=== PATIENT | female | born 1955 | race Caucasian/White ===

== ENCOUNTER 2024-07-01 08:31 | Inpatient (IN) ==
[2024-07-01] MEDS: IPRATROPIUM/ALBUTEROL 3 ML AMPUL.NEB NEB ONE (08:59)
[2024-07-01 09:37] LABS: Basophils # (Auto) 0.03 K/mcL (0.00-0.30); Basophils % (Auto) 0.4 % (0.0-2.0); Eosinophils # (Auto) 0 K/mcL (0.00-0.70); Eosinophils % (Auto) 0 % (0.0-7.0); Hematocrit 49.3 % (34.1-44.9); Hemoglobin 15.7 g/dL (11.2-15.7); Lymphocytes # (Auto) 2.89 K/mcL (1.50-4.80); Lymphocytes % (Auto) 36.5 % (15.5-49.0); Mean Cell Volume 99.6 fL (80.0-100.0); Mean Corpuscular HGB Conc 31.8 g/dL (31.0-36.0); Mean Platelet Volume 10.9 fL (8.8-12.5); Monocytes # (Auto) 0.57 K/mcL (0.10-0.90); Monocytes % (Auto) 7.2 % (1.0-12.0); Neutrophils % (Auto) 55.8 % (38.0-78.0); Platelet Count 168 K/mcL (140-440); RBC 4.95 M/mcL (3.59-5.38); Red Cell Distribution Width 13.5 % (11.5-14.5); WBC 7.9 K/mcL (4.5-11.0)
[2024-07-01 09:59] LABS: ALT/SGPT 34 U/L (<40); AST/SGOT 39 U/L (<32); Albumin 3.5 gm/dL (3.2-5.2); Albumin/Globulin Ratio 1.2 (1.0-2.3); Alkaline Phosphatase 84 U/L (39-117); Bilirubin,Total 0.4 mg/dL (0.1-1.0); Blood Urea Nitrogen 11 mg/dL (8-23); Calcium 9.6 mg/dL (8.6-10.4); Carbon Dioxide 27 mmol/L (22-30); Chloride 97 mmol/L (96-108); Globulin 2.9 gm/dL (2.2-3.7); Glomerular Filtration Rate 57; Glucose 180 mg/dL (70-105); Potassium 4.8 mmol/L (3.3-5.1); Sodium 136 mmol/L (133-145)
[2024-07-01] MEDS: AZITHROMYCIN 250 MG TABLET PO ONE (11:44)
[2024-07-01] MEDS: 0.9 % SODIUM CHLORIDE 500 ML IV ONE (11:45)
[2024-07-01] MEDS: cefTRIAXone 1 GM VIAL IV ONE (11:45)
[2024-07-01] MEDS: ALBUTEROL SULFATE 2.5 MG/3 ML NEBULIZER NEB ONE (11:54)
[2024-07-01 13:00] LABS: INR 1.4 (0.9-1.1); Prothrombin Time 18.6 sec (11.9-14.5)
[2024-07-01] MEDS ORDERED: POTASSIUM CHLORIDE 40 MEQ in DEXTROSE 5% IN WATER 500 ML IV PRN (13:41)
[2024-07-01] MEDS ORDERED: DEXTROSE 50% 50 ML VIAL IV PRN (13:41)
[2024-07-01] MEDS ORDERED: ACETAMINOPHEN 325 MG TABLET PO PRN (13:41)
[2024-07-01] MEDS ORDERED: DEXTROSE 31 GM ORAL.SUSP PO PRN (13:41)
[2024-07-01] MEDS ORDERED: POTASSIUM CHLORIDE 20 MEQ TABLET PO PRN ×2 (13:41)
[2024-07-01] MEDS ORDERED: METOCLOPRAMIDE 10 MG/2 ML VIAL IV PRN (13:41)
[2024-07-01] MEDS ORDERED: ONDANSETRON 4 MG/2 ML VIAL IV PRN (13:41)
[2024-07-01] MEDS ORDERED: SENNOSIDES 1 TABLET PO PRN (13:41)
[2024-07-01] MEDS: METOPROLOL TARTRATE 5 MG/5 ML VIAL IV PRN (16:47)
[2024-07-01] MEDS: INSULIN LISPRO 1 UNIT/0.01 ML UNIT SQ SCH (16:56)
[2024-07-01] MEDS: APIXABAN 5 MG TABLET PO SCH (20:31)
[2024-07-01] MEDS: guaiFENesin/CODEINE 10 ML UDC PO PRN (20:31)
[2024-07-01] MEDS: OMEPRAZOLE 20 MG CAPSULE PO SCH (20:31)
[2024-07-01] MEDS: DIVALPROEX SODIUM ER 250 MG TABLET PO SCH (20:32)
[2024-07-01] MEDS: BENZTROPINE 1 MG TABLET PO SCH (20:33)
[2024-07-01] MEDS: IPRATROPIUM/ALBUTEROL 3 ML AMPUL.NEB NEB PRN (21:01)
[2024-07-02 06:20] LABS: Basophils # (Auto) 0.03 K/mcL (0.00-0.30); Basophils % (Auto) 0.4 % (0.0-2.0); Eosinophils # (Auto) 0.06 K/mcL (0.00-0.70); Eosinophils % (Auto) 0.8 % (0.0-7.0); Hematocrit 44.8 % (34.1-44.9); Hemoglobin 14.3 g/dL (11.2-15.7); Lymphocytes # (Auto) 3.67 K/mcL (1.50-4.80); Lymphocytes % (Auto) 51.7 % (15.5-49.0); Mean Corpuscular HGB Conc 31.9 g/dL (31.0-36.0); Mean Platelet Volume 11.3 fL (8.8-12.5); Monocytes # (Auto) 0.75 K/mcL (0.10-0.90); Monocytes % (Auto) 10.6 % (1.0-12.0); Neutrophils % (Auto) 36.4 % (38.0-78.0); Platelet Count 154 K/mcL (140-440); RBC 4.48 M/mcL (3.59-5.38); Red Cell Distribution Width 13.6 % (11.5-14.5); WBC 7.1 K/mcL (4.5-11.0)
[2024-07-02 06:32] LABS: ALT/SGPT 26 U/L (<40); AST/SGOT 32 U/L (<32); Albumin 3.2 gm/dL (3.2-5.2); Albumin/Globulin Ratio 1.2 (1.0-2.3); Alkaline Phosphatase 72 U/L (39-117); Bilirubin,Direct < 0.2 mg/dL (0-0.3); Bilirubin,Total 0.3 mg/dL (0.1-1.0); Blood Urea Nitrogen 12 mg/dL (8-23); Calcium 8.9 mg/dL (8.6-10.4); Carbon Dioxide 26 mmol/L (22-30); Chloride 100 mmol/L (96-108); Globulin 2.6 gm/dL (2.2-3.7); Glomerular Filtration Rate 74; Glucose 138 mg/dL (70-105); Lactate Dehydrogenase 202 U/L (135-225); Phosphorous 3.9 mg/dL (2.5-4.5); Potassium 5.3 mmol/L (3.3-5.1); Sodium 138 mmol/L (133-145); Triglycerides 128 mg/dL (<150); Uric Acid 5.9 mg/dL (2.5-8.0)
[2024-07-02] MEDS: FUROSEMIDE 40 MG TABLET PO SCH (09:31)
[2024-07-02] MEDS: QUEtiapine 25 MG TABLET PO SCH (09:31)
[2024-07-02] MEDS: METOPROLOL SUCCINATE 25 MG TAB.XL.24H PO SCH (09:32)
[2024-07-02] MEDS: ATORVASTATIN 20 MG TABLET PO SCH (09:32)
[2024-07-02] MEDS: cefTRIAXone 2 GM in DEXTROSE 5% IN WATER 50 ML IV SCH (10:01)
[2024-07-02] MEDS: AZITHROMYCIN 500 MG in DEXTROSE 5% IN WATER 250 ML IV SCH (10:52)
[2024-07-02] MEDS: MAGNESIUM SULFATE 2 GM/50 ML BAG IV PRN (12:10)
[2024-07-02] MEDS: VENLAFAXINE 75 MG PO SCH (15:40)
[2024-07-03] MEDS: BENZOCAINE/MENTHOL 1 LOZENGE PO PRN (02:58)
[2024-07-03 06:29] LABS: ALT/SGPT 22 U/L (<40); AST/SGOT 28 U/L (<32); Albumin/Globulin Ratio 1.2 (1.0-2.3); Alkaline Phosphatase 68 U/L (39-117); Bilirubin,Direct < 0.2 mg/dL (0-0.3); Bilirubin,Total 0.3 mg/dL (0.1-1.0); Blood Urea Nitrogen 11 mg/dL (8-23); Calcium 8.4 mg/dL (8.6-10.4); Carbon Dioxide 27 mmol/L (22-30); Chloride 99 mmol/L (96-108); Globulin 2.5 gm/dL (2.2-3.7); Glomerular Filtration Rate 88; Glucose 144 mg/dL (70-105); Lactate Dehydrogenase 212 U/L (135-225); Phosphorous 4.5 mg/dL (2.5-4.5); Potassium 4.9 mmol/L (3.3-5.1); Sodium 137 mmol/L (133-145); Triglycerides 144 mg/dL (<150); Uric Acid 6.1 mg/dL (2.5-8.0)
[2024-07-03] MEDS: POLYETHYLENE GLYCOL 3350 17 GM PACKET PO PRN (07:39)
[2024-07-03] MEDS: DIVALPROEX SODIUM ER 250 MG TABLET PO SCH (09:44)
[2024-07-03] MEDS: VENLAFAXINE 37.5 MG TAB.ER.24H PO SCH ×2 (09:45→10:54)
[2024-07-03] MEDS: QUEtiapine 25 MG TABLET PO SCH (09:45)
[2024-07-03] MEDS: ALBUMIN HUMAN 12.5 GM/50 ML VIAL IV ONE (09:46)
[2024-07-03] MEDS: FUROSEMIDE 40 MG/4 ML VIAL IV ONE (10:28)
[2024-07-03] MEDS: 0.9 % SODIUM CHLORIDE 10 ML SYRINGE IV SCH (21:11)
[2024-07-04 06:26] LABS: ALT/SGPT 22 U/L (<40); AST/SGOT 24 U/L (<32); Albumin 3.1 gm/dL (3.2-5.2); Albumin/Globulin Ratio 1.1 (1.0-2.3); Alkaline Phosphatase 66 U/L (39-117); Bilirubin,Direct < 0.2 mg/dL (0-0.3); Bilirubin,Total 0.3 mg/dL (0.1-1.0); Blood Urea Nitrogen 13 mg/dL (8-23); Calcium 8.3 mg/dL (8.6-10.4); Carbon Dioxide 29 mmol/L (22-30); Chloride 97 mmol/L (96-108); Globulin 2.7 gm/dL (2.2-3.7); Glomerular Filtration Rate 88; Glucose 176 mg/dL (70-105); Lactate Dehydrogenase 196 U/L (135-225); Phosphorous 3.6 mg/dL (2.5-4.5); Sodium 135 mmol/L (133-145); Triglycerides 134 mg/dL (<150); Uric Acid 6.4 mg/dL (2.5-8.0)
[2024-07-04] MEDS: ALBUMIN HUMAN 12.5 GM/50 ML VIAL IV SCH (09:22)
[2024-07-04] MEDS: FUROSEMIDE 100 MG/10 ML VIAL IV SCH (09:47)
[2024-07-04 15:36] VITALS: TEMP 97.1; O2SAT 93
== END 2024-07-04 15:25 | disposition home health service (06) | DRG 193 ==
LOC: ED 08:31 → ICU 13:35
PROVIDERS: ADMIT Internal Medicine; ATTEND Internal Medicine

== ENCOUNTER 2024-12-26 08:58 | Inpatient (IN) ==
[2024-12-26] MEDS ORDERED: IOPAMIDOL 100 ML BOTTLE IV ONE (08:59)
[2024-12-26 10:21] LABS: Basophils # (Auto) 0.05 K/mcL (0.00-0.30); Basophils % (Auto) 0.6 % (0.0-2.0); Eosinophils # (Auto) 0.05 K/mcL (0.00-0.70); Eosinophils % (Auto) 0.6 % (0.0-7.0); Hematocrit 47.7 % (34.1-44.9); Hemoglobin 15.6 g/dL (11.2-15.7); Lymphocytes # (Auto) 3.05 K/mcL (1.50-4.80); Lymphocytes % (Auto) 39.6 % (15.5-49.0); Mean Corpuscular HGB Conc 32.7 g/dL (31.0-36.0); Monocytes # (Auto) 0.64 K/mcL (0.10-0.90); Monocytes % (Auto) 8.3 % (1.0-12.0); Neutrophils % (Auto) 50.8 % (38.0-78.0); Platelet Count 174 K/mcL (140-440); RBC 4.93 M/mcL (3.59-5.38); WBC 7.7 K/mcL (4.5-11.0)
[2024-12-26] MEDS: ACETAMINOPHEN 1,000 MG/100 ML BAG IV ONE (10:21)
[2024-12-26] MEDS: 0.9 % SODIUM CHLORIDE 1,000 ML IV ONE (10:21)
[2024-12-26 10:24] LABS: ALT/SGPT 13 U/L (<40); AST/SGOT 19 U/L (<32); Albumin 3.5 gm/dL (3.2-5.2); Albumin/Globulin Ratio 1.3 (1.0-2.3); Alkaline Phosphatase 76 U/L (39-117); Anion Gap 15.0 (8.0-16.0); Bilirubin,Total 0.5 mg/dL (0.1-1.0); Blood Urea Nitrogen 11 mg/dL (8-23); Calcium 9.7 mg/dL (8.6-10.4); Carbon Dioxide 25 mmol/L (22-30); Chloride 101 mmol/L (96-108); Globulin 2.7 gm/dL (2.2-3.7); Glucose 127 mg/dL (70-105); Potassium 4.3 mmol/L (3.3-5.1); Sodium 141 mmol/L (133-145)
[2024-12-26] MEDS: CEFEPIME 2 GM VIAL IV ONE (10:42)
[2024-12-26] MEDS: LORazepam 2 MG/ML VIAL IV ONE (11:01)
[2024-12-26 11:35] LABS: Bacteria,Urine Many /hpf (0); Bilirubin,Urine NEGATIVE (Negative); Color,Urine YELLOW; Glucose,Urine (UA) NEGATIVE (Negative); Ketones,Urine 15 mg/dL (Negative); Leukocyte Esterase,Urine TRACE /uL (Negative); PH,Urine 6.0 (5.0-9.0); Protein,Urine NEGATIVE (Negative); Specific Gravity,Urine >= 1.030 (1.000-1.035); Urobilinogen,Urine 1.0 mg/dL
[2024-12-26] MEDS: MAGNESIUM SULFATE 2 GM/50 ML BAG IV ONE (12:57)
[2024-12-26] MEDS ORDERED: ONDANSETRON 4 MG/2 ML VIAL IV PRN (16:42)
[2024-12-26] MEDS ORDERED: DEXTROSE 50% 50 ML VIAL IV PRN (16:42)
[2024-12-26] MEDS ORDERED: DEXTROSE 31 GM ORAL.SUSP PO PRN (16:42)
[2024-12-26] MEDS: INSULIN LISPRO 1 UNIT/0.01 ML UNIT SQ SCH (17:36)
[2024-12-26] MEDS: SENNOSIDES 1 TABLET PO SCH (20:19)
[2024-12-26] MEDS: SULFAMETHOXAZOLE/TRIMETHOPRIM 1 TABLET PO SCH (20:19)
[2024-12-26] MEDS: APIXABAN 5 MG TABLET PO SCH (20:19)
[2024-12-26] MEDS: 0.9 % SODIUM CHLORIDE 10 ML SYRINGE IV SCH (20:20)
[2024-12-27 06:45] LABS: Basophils # (Auto) 0.05 K/mcL (0.00-0.30); Basophils % (Auto) 0.7 % (0.0-2.0); Eosinophils # (Auto) 0.08 K/mcL (0.00-0.70); Eosinophils % (Auto) 1.1 % (0.0-7.0); Hematocrit 43.0 % (34.1-44.9); Hemoglobin 14.1 g/dL (11.2-15.7); Lymphocytes # (Auto) 3.04 K/mcL (1.50-4.80); Lymphocytes % (Auto) 41.9 % (15.5-49.0); Mean Corpuscular HGB Conc 32.8 g/dL (31.0-36.0); Monocytes # (Auto) 0.76 K/mcL (0.10-0.90); Monocytes % (Auto) 10.5 % (1.0-12.0); Neutrophils % (Auto) 45.7 % (38.0-78.0); Platelet Count 147 K/mcL (140-440); RBC 4.41 M/mcL (3.59-5.38); WBC 7.3 K/mcL (4.5-11.0)
[2024-12-27 06:47] LABS: ALT/SGPT 11 U/L (<40); AST/SGOT 15 U/L (<32); Albumin 3.1 gm/dL (3.2-5.2); Albumin/Globulin Ratio 1.3 (1.0-2.3); Alkaline Phosphatase 67 U/L (39-117); Anion Gap 7.0 (8.0-16.0); Bilirubin,Direct 0.3 mg/dL (<0.3); Bilirubin,Total 0.5 mg/dL (0.1-1.0); Blood Urea Nitrogen 8 mg/dL (8-23); Calcium 9.0 mg/dL (8.6-10.4); Carbon Dioxide 30 mmol/L (22-30); Chloride 104 mmol/L (96-108); Globulin 2.3 gm/dL (2.2-3.7); Glucose 89 mg/dL (70-105); Phosphorous 3.1 mg/dL (2.5-4.5); Potassium 4.1 mmol/L (3.3-5.1); Sodium 141 mmol/L (133-145); Triglycerides 115 mg/dL (<150); Uric Acid 5.4 mg/dL (2.5-8.0)
[2024-12-27] MEDS: MAGNESIUM SULFATE 2 GM/50 ML BAG IV ONE (08:17)
[2024-12-27] MEDS: APIXABAN 5 MG TABLET PO SCH (08:17)
[2024-12-27] MEDS: VENLAFAXINE 37.5 MG TAB.ER.24H PO SCH (08:17)
[2024-12-27] MEDS: ATORVASTATIN 40 MG TABLET PO SCH (08:17)
[2024-12-27] MEDS: DIVALPROEX SODIUM ER 250 MG TABLET PO SCH (10:01)
[2024-12-27] MEDS: AMANTADINE HCL 100 MG CAPSULE PO SCH (10:01)
[2024-12-27] MEDS: ACETAMINOPHEN 325 MG TABLET PO PRN (19:05)
[2024-12-27] MEDS: OMEPRAZOLE 20 MG CAPSULE PO SCH (20:38)
[2024-12-27] MEDS: METOPROLOL SUCCINATE 25 MG TAB.XL.24H PO SCH (20:40)
[2024-12-28 07:08] LABS: ALT/SGPT 11 U/L (<40); AST/SGOT 20 U/L (<32); Albumin 3.0 gm/dL (3.2-5.2); Albumin/Globulin Ratio 1.3 (1.0-2.3); Alkaline Phosphatase 69 U/L (39-117); Anion Gap 8.0 (8.0-16.0); Bilirubin,Direct < 0.2 mg/dL (0-0.3); Bilirubin,Total 0.3 mg/dL (0.1-1.0); Blood Urea Nitrogen 9 mg/dL (8-23); Calcium 8.7 mg/dL (8.6-10.4); Carbon Dioxide 27 mmol/L (22-30); Chloride 102 mmol/L (96-108); Globulin 2.3 gm/dL (2.2-3.7); Glucose 100 mg/dL (70-105); Phosphorous 3.4 mg/dL (2.5-4.5); Potassium 4.4 mmol/L (3.3-5.1); Sodium 137 mmol/L (133-145); Triglycerides 110 mg/dL (<150); Uric Acid 4.9 mg/dL (2.5-8.0)
[2024-12-29] MEDS ORDERED: POLYETHYLENE GLYCOL 3350 17 GM PACKET PO PRN (12:46)
[2024-12-29] MEDS: BISACODYL 10 MG SUPP.RECT PR PRN (13:16)
[2025-01-02 10:44] VITALS: O2SAT 94
[2025-01-02 11:41] VITALS: TEMP 98.6
== END 2025-01-02 16:55 | DRG 690 ==
LOC: ED 08:58 → MEDSUR 16:34
PROVIDERS: ADMIT Internal Medicine; ATTEND Internal Medicine